=== PATIENT | male | born 1980 | race Caucasian/White ===

== ENCOUNTER 2020-05-02 20:44 | Emergency (ER) | payer SELFPAY ==
[~2020-05-02] VITALS: Ht 180.3 cm; Wt 82.0 kg
--- NOTE | 2020-05-02 21:13 | NUR ---
PT JENNY WALSH, PT IS ON A LEGAL PER PD. PT REPORTS THAT HE HAS BEEN FEELING SI FOR THREE MONTHS SINCE HE GOT . PT SMELLS OF ETOH. PT WANTS TO TAKE PILLS TO HURT HIMSELF. PT ALSO REPORTS HE HAS ATTEMPTED TO KILL HIMSELF WITH PILLS IN THE PAST. VS STABLE. PT SEEN BY DR WHEELER. SITTER AT DOOR. BELONGINGS (1 BAG) LOCKED UP. VS STABLE. WILL CONTINUE TO MONITOR.
--- NOTE | 2020-05-02 21:30 | NUR ---
PT GIVEN A SANDWICH. SITTER AT DOOR. PT UNDER CONSTANT WATCH. WILL CONTINUE TO MONITOR.
[2020-05-02 21:35] LABS: AMPHETAMINE SCREEN, URINE Negative (Negative); BARBITURATE SCREEN, URINE Negative (Negative); BENZODIAZEPINE SCREEN, URINE Negative (Negative); CANNABINOID SCREEN, URINE Positive (Negative); COCAINE SCREEN, URINE Negative (Negative); METHADONE SCREEN, URINE Negative (Negative); OPIATE SCREEN, URINE Negative (Negative)
[2020-05-02 21:38] LABS: BASOPHILS # (AUTO) 0.02 x10^3/uL (0-0.1); BASOPHILS % (AUTO) 0 % (0-1); EOSINOPHILS # (AUTO) 0.07 x10^3/uL (0-0.4); EOSINOPHILS % (AUTO) 1 % (1-7); LYMPHOCYTES # (AUTO) 2.77 x10^3/uL (1-3.4); LYMPHOCYTES % (AUTO) 36 % (22-44); MD NO; MEAN CORPUSCULAR HEMOGLOBIN 30.2 pg (27.5-34.5); MEAN CORPUSCULAR HGB CONC 33.8 g/dL (33.2-36.2); MEAN CORPUSCULAR VOLUME 89.4 fL (81-97); MEAN PLATELET VOLUME 7.1 fL (7.4-10.4); MONOCYTES # (AUTO) 0.43 x10^3/uL (0.2-0.8); MONOCYTES % (AUTO) 6 % (2-9); NEUTROPHILS # (AUTO) 4.33 x10^3/uL (1.8-6.8); NEUTROPHILS % (AUTO) 57 % (42-75); PLATELET COUNT 283 x10^3/uL (130-400); RED BLOOD COUNT 5.48 x10^6/uL (4.38-5.82); RED CELL DISTRIBUTION WIDTH 15.7 % (9.4-14.8)
--- NOTE | 2020-05-02 21:47 | NUR ---
PT MOVED TO ROOM 3. ROOM SECURED AND BELONGS LOCKED UP. PT APPEARS CALM AND AGREEABLE. SITTER IN VIEW OF PT.
[2020-05-02 21:52] LABS: ALANINE AMINOTRANSFERASE 87 U/L (12-78); ALBUMIN 3.8 g/dL (3.4-5.0); ANION GAP 7 mmol/L (5-15); CALCIUM 8.1 mg/dL (8.5-10.1); CHLORIDE 115 mmol/L (98-107); SALICYLATE LEVEL 4.2 mg/dL (2.8-20.0)
[2020-05-02 21:54] LABS: ALKALINE PHOSPHATASE 79 U/L (45-117); BILIRUBIN,TOTAL 0.4 mg/dL (0.2-1.0); CREATININE 0.58 mg/dL (0.7-1.3); TOTAL PROTEIN 7.8 g/dL (6.4-8.2)
--- NOTE | 2020-05-02 23:02 | NUR ---
PT SLEEPING. EVEN RISE AND FALL OF CHEST OBSERVED. SITTER IN VIEW OF PT.
--- NOTE | 2020-05-03 00:34 | NUR ---
PTS SISTER CAME AND VERBALIZED CONCERN FOR HER BROTHER. HE WAS AT [place] ON TUESDAY FOR SI WELL. FAMILY CONCERNED FOR PTS SAFETY. RN REASSURED SISTER THAT PT WAS SAFE AND WOULD BE EVALUATED BY A MD IN THE MORNING. PT SLEEPING IN NAD. EVEN RISE AND FALL OF CHEST OBSERVED. SITTER IN VIEW OF PT.
--- NOTE | 2020-05-03 01:30 | NUR ---
PT SLEEPING. EVEN RISE AND FALL OF CHEST OBSERVED. SITTER IN VIEW OF PT.
[2020-05-03 03:00] VITALS: BP 139/81
--- NOTE | 2020-05-03 03:05 | NUR ---
PT SLEEPING. EVEN RISE AND FALL OF CHEST OBSERVED. SITTER IN VIEW OF PT.
--- NOTE | 2020-05-03 04:19 | NUR ---
PT SLEEPING. EVEN RISE AND FALL OF CHEST OBSERVED. SITTER IN VIEW OF PT.
--- NOTE | 2020-05-03 04:41 | NUR ---
BREATHALYZER DONE AND PT IS STILL INTOXICATED. PT BACK TO SLEEP WITH NO NEEDS AT THIS TIME. SITTER IN VIEW OF PT.
--- NOTE | 2020-05-03 04:56 | NUR ---
REPORT FROM BAO CERVANTES
--- NOTE | 2020-05-03 07:03 | NUR ---
Report from Dulce GORE. Pt pacing around room, requesting cigarette, diet soda, and to leave. POC discussed with pt. Pt agreeable to waiting for assessment by psych MAINTENANCE PAINTER APPRENTICE once he is sober. Room is secured, sitter within eyesight of pt.
--- NOTE | 2020-05-03 07:34 | NUR ---
Pt states "I want my clothes. I've been waiting forever. I just want to go home." Pt advised that we are awaiting his blood alcohol level to be below the leagal limit so that he may be evaluated by the psych SHIPPING AND RECEIVING ASSISTANT. Pt advised that meal tray has been ordered for him and diet soda has been requested. Pt thankful, agrees to wait in his room.
--- NOTE | 2020-05-03 08:11 | NUR ---
Pt provided meal tray with diet soda, SI precautions observed.
--- NOTE | 2020-05-03 09:05 | NUR ---
Pt ate breakfast, resting in bed, denies needs.
--- NOTE | 2020-05-03 10:00 | NUR ---
Pt resting in bed watching TV, NADN. Awaiting WATCH GUARD GATE to eval pt.
--- NOTE | 2020-05-03 10:55 | NUR ---
Pt provided water per request, POC discussed, denies other needs. Pt cooperative with staff and POC.
--- NOTE | 2020-05-03 11:36 | NUR ---
Vandana LUCIANON at bedside to evaluate pt.
--- NOTE | 2020-05-03 12:20 | NUR ---
Pt denies SI/HI, cleared by Vandana SORIANO. Pt provided with all the belongings he came in with and allowed privacy to change. Pt states he plans to call a taxi to come take him home. Pt able to dress self fully and ambulate out of unit with steady gait, NADN.
== END 2020-05-03 12:23 | disposition home or self-care (01) ==
LOC: ED 05-03 06:45
DX: R45.851 Suicidal ideations (principal); F10.220 Alcohol dependence with intoxication, uncomplicated; Y90.9 Presence of alcohol in blood, level not specified
CPT/HCPCS: 36415; 80053; 80307; 85025; 99283; 99284